=== PATIENT | male | born 1985 | race Caucasian/White ===

== ENCOUNTER → 2017-11-20 | Outpatient (CLI) | payer OTHER ==
--- NOTE | 2017-11-21 07:32 | USB ---
Reason for exam: additional evaluation requested from abnormal screening. History: Family history of breast cancer in maternal grandmother. Took other hormone for 3 months. US Breast RT Right limited breast ultrasound including focal area of concern, retroareolar and axilla demonstrates a 0.4 x 0.5 x 0.3cm oval, solid, hyperechoic lesion at 6 o'clock, a 0.5 x 0.5 x 0.3cm oval node at 7 o'clock and a 0.8 x 1.6 x 0.4cm oval, irregular, hypoechoic lesion at the posterior nipple, small area of gynecomastia. Dense island of tissue represent the mammographic finding. These results were verbally communicated with the patient and result sheet given to the patient on 11/20/17. ASSESSMENT: Benign, BI-RAD 2 RECOMMENDATION: Clinical management of the right breast. Manage patient on a clinical basis. Return of increase in size or symptoms.
--- NOTE | 2017-11-21 07:34 | MM ---
Reason for exam: clinical finding. History: Family history of breast cancer in maternal grandmother. Took other hormone for 3 months. Indicated problem(s): lump or thickening in the right breast. Physical Findings: Nurse did not find any significant physical abnormalities on exam. [facility] Mammo w CAD DIYA Bilateral CC and MLO view(s) were taken. Right focal asymmetry appears as gynecomastia, however, it does not connect to the nipple and there for ultrasound will be performed. These results were verbally communicated with the patient and result sheet given to the patient on 11/20/17. ASSESSMENT: Incomplete: need additional imaging evaluation, BI-RAD 0 RECOMMENDATION: Ultrasound of the right breast.
== END | disposition home or self-care (01) ==
LOC: RADMAMWWP 14:50
DX: N63.41 Unspecified lump in right breast, subareolar (principal); R92.8 Other abnormal and inconclusive findings on diagnostic imaging of breast
CPT/HCPCS: 77066

== ENCOUNTER → 2019-08-12 | Outpatient (CLI) | payer OTHER ==
--- NOTE | 2019-08-12 07:38 | CT ---
EXAMINATION TYPE: CT brain wo con DATE OF EXAM: 08/12/2019 COMPARISON: None. HISTORY: LOFTON Lt side of head CT DLP: 995.5 mGycm. Automated Exposure Control for Dose Reduction was Utilized. TECHNIQUE: CT scan of the head is performed without contrast. FINDINGS: There is no acute intracranial hemorrhage, mass effect, or midline shift identified. The ventricles and sulci are within normal limits in size. Barraza-white matter differentiation is maintain ed. There is empty sella morphology. No secondary CT findings to suggest intracranial hypertension. T he globes are intact and the visualized sinuses are clear. IMPRESSION: No acute intracranial hemorrhage or midline shift is seen.
== END | disposition home or self-care (01) ==
LOC: RADCTMAIN 06:52
PROVIDERS: ATTEND Physician Assistant
DX: R51 Headache (principal)
CPT/HCPCS: 70450

== ENCOUNTER → 2024-03-18 | Outpatient (CLI) | payer OTHER ==
--- NOTE | 2024-03-18 11:16 | CT ---
EXAMINATION TYPE: CT chest wo con CT DLP: 463.60 mGycm, Automated exposure control for dose reduction was used. DATE OF EXAM: 03/18/2024 10:48 AM COMPARISON: None CLINICAL INDICATION:Male, 38 years old with history of R07.9 CHEST PAIN; PHH, LT side chest pain, und erarm pain. TECHNIQUE: Multiple axial images were obtained through the chest without IV contrast. Lack of IV or o ral contrast limits evaluation of solid and hollow organ viscera. . Coronal and sagittal reformats re viewed. FINDINGS: LUNGS/ PLEURA: The lung parenchyma appears unremarkable. AIRWAY: Patent and unremarkable.. HEART: Size within normal limits. No pericardial effusion. MEDIASTINUM: No gross evidence of adenopathy. VASCULATURE: No aortic aneurysm. MUSCULOSKELETAL: No acute osseous abnormalities SOFT TISSUES/LYMPH NODES: Bilateral gynecomastia with right greater than left. No axillary adenopathy . LOWER NECK: No significant findings. UPPER ABDOMEN: No significant findings. IMPRESSION: No CT evidence of abnormality corresponding to patient's symptomology.
== END | disposition home or self-care (01) ==
LOC: RADCTMAIN 10:21
PROVIDERS: ATTEND Family Medicine
DX: R07.9 Chest pain, unspecified (principal)
CPT/HCPCS: 71250

== ENCOUNTER → 2024-09-05 | Outpatient (CLI) | payer OTHER ==
--- NOTE | 2024-09-06 14:42 | MR ---
EXAMINATION TYPE: MR lumbar spine wo con DATE OF EXAM: 09/05/2024 9:56 AM COMPARISON: None. CLINICAL INDICATION: Male, 39 years old with history of M54.50 LOW BACK PAIN, Severe lower back pain, radiates into right hip/leg. TECHNIQUE: Multiplanar, multisequence images of the lumbar spine were acquired. IV Contrast: mL (None, if empty) FINDINGS: Cord ends at the L1 level. L5-S1: Mild broad-based disc bulge is present with anterior thecal sac contact. No spinal canal steno sis is evident. Moderate bilateral foraminal narrowing is present. Disc desiccation is present. L4-L5: There is a large right paracentral disc herniation with moderate anterior thecal sac compressi on. There is likely some displacement or compression of the right L5 nerve root. AP spinal canal sten osis is not present. Facet hypertrophy is present. There is some mild left and moderate right foramin al stenosis. L3-L4: No focal disc herniation or significant disc bulge. No spinal canal stenosis. Neural foramen are patent. L2-L3: No focal disc herniation or significant disc bulge. No spinal canal stenosis. Neural foramen are patent. L1-L2: No focal disc herniation or significant disc bulge. No spinal canal stenosis. Neural foramen are patent. T12-L1: No focal disc herniation or significant disc bulge. No spinal canal stenosis. Neural forame n are patent. IMPRESSION: 1. Large right paracentral disc herniation with moderate anterior thecal sac compression. Correlate f or right L5 radicular symptoms. Moderate right foraminal narrowing is present. 2. Mild disc bulge L5-S1 with moderate bilateral foraminal narrowing [facility], , 09/06/2024 2:40 PM
== END | disposition home or self-care (01) ==
LOC: RADMRIMAIN 09:15
PROVIDERS: ATTEND Family Medicine
DX: M51.26 Other intervertebral disc displacement, lumbar region (principal); M99.73 Connective tissue and disc stenosis of intervertebral foramina of lumbar region; M51.27 Other intervertebral disc displacement, lumbosacral region
CPT/HCPCS: 72148